=== PATIENT | female | born 1945 | race Caucasian/White ===

== ENCOUNTER → 2016-08-02 | Outpatient (CLI) | payer MEDICARE, OTHER ==
[~2016-08-02] MED LIST: ALEN70TA5 PO; AMLO5TAB2 PO; ASPI-496 PO; CHOL100015 PO; EZET10TA3 PO; FLUT16SP NS; LOPE2CAP94 PO; METO-99 PO; MV,C400T3 PO; PROBIOSLIM PO; TOLT1TAB4 PO; TRAM50TA2 PO
== END | disposition home or self-care (01) ==
LOC: STAR 12:00
PROVIDERS: ATTEND Surgery
DX: Z01.818 Encounter for other preprocedural examination (principal); R92.0 Mammographic microcalcification found on diagnostic imaging of breast
CPT/HCPCS: 93005

== ENCOUNTER 2016-08-08 08:24 | Day surgery (SDC) | payer MEDICARE, OTHER ==
[~2016-08-08] VITALS: Ht 170.2 cm; Wt 111.0 kg
[2016-08-08] MEDS ORDERED: LACTATED RINGERS 1,000 ML IV SCH (10:04)
[2016-08-08] MEDS ORDERED: LIDOCAINE 1%, 2ML ONE (10:07)
[2016-08-08] MEDS ORDERED: LIDOCAINE 1%, 20ML ONE (10:09)
[2016-08-08] MEDS ORDERED: SODIUM BICARBONATE 4.2%, 5ML ONE (10:09)
[2016-08-08 10:10] VITALS: BP 116/66
[2016-08-08] MEDS ORDERED: ONDANSETRON 2MG/ML, 2ML ONE ×2 (10:20→13:18)
[2016-08-08] MEDS ORDERED: CEFAZOLIN 1,000 MG ONE (10:20)
[2016-08-08] MEDS ORDERED: GLYCOPYRROLATE 0.2MG/1ML ONE (10:20)
[2016-08-08] MEDS ORDERED: PROPOFOL 10 MG/ML, 20ML ONE (10:20)
[2016-08-08] MEDS ORDERED: DEXAMETHASONE 4 MG/ML, 5ML ONE (10:20)
[2016-08-08] MEDS ORDERED: BUPIVACAINE/PF 0.5% ONE (11:00)
[2016-08-08] MEDS ORDERED: BUPIVACAINE/PF-EPI 0.5% 1:200K ONE (11:01)
[2016-08-08] MEDS ORDERED: FENTANYL PF 100 MCG/2ML ONE (12:23)
[2016-08-08] MEDS ORDERED: OXYcodone 5 MG/5 ML ORAL.SOL UDC PO PRN (12:30)
[2016-08-08] MEDS ORDERED: hydrALAzine 20 MG/ML, 1ML IV PRN (12:30)
[2016-08-08] MEDS ORDERED: ONDANSETRON 2MG/ML, 2ML IVPush PRN (12:30)
[2016-08-08] MEDS ORDERED: HYDROmorphone 1 MG/ML, 1ML IV PRN (12:30)
[2016-08-08] MEDS ORDERED: ACETAMINOPHEN 325 MG TABLET PO PRN (12:30)
[2016-08-08] MEDS ORDERED: FENTANYL PF 100 MCG/2ML IV PRN (12:30)
[2016-08-08] MEDS ORDERED: LABETALOL 5MG/ML, 20ML IV PRN (12:30)
[2016-08-08] MEDS ORDERED: OXYcodone 5 MG/5 ML ORAL.SOL UDC ONE (13:19)
[2016-08-08] MEDS ORDERED: HYDROmorphone 1 MG/ML, 1ML ONE (13:46)
== END 2016-08-08 17:55 | disposition home or self-care (01) ==
LOC: CFH 08:24 → OUT 17:55
PROVIDERS: ATTEND Surgery
DX: C50.911 Malignant neoplasm of unspecified site of right female breast (principal); N60.21 Fibroadenosis of right breast; G47.33 Obstructive sleep apnea (adult) (pediatric); I10 Essential (primary) hypertension; E78.5 Hyperlipidemia, unspecified; Z90.49 Acquired absence of other specified parts of digestive tract; Z87.442 Personal history of urinary calculi; Z98.890 Other specified postprocedural states; M19.90 Unspecified osteoarthritis, unspecified site; Z82.49 Family history of ischemic heart disease and other diseases of the circulatory system
CPT/HCPCS: 19125; 19281; 88307; J0690; J1100; J1170; J2405; J2704; J3010; J3490; J7120

== ENCOUNTER 2016-09-05 12:52 | Observation (INO) | payer MEDICARE, OTHER ==
[~2016-09-05] VITALS: Ht 170.2 cm; Wt 112.0 kg
[~2016-09-05 12:52] MED LIST changes: +CEFAZOLIN 1,000 MG ONE; +EPHEDRINE 50 MG/ML, 1ML ONE; +GLYCOPYRROLATE 0.2MG/1ML ONE; +ONDANSETRON 2MG/ML, 2ML ONE; +PROPOFOL 10 MG/ML, 20ML ONE; +ROCURONIUM 10 MG/ML ONE; +SUCCINYLCHOLINE 20 MG/ML, 10ML ONE
[2016-09-05] MEDS ORDERED: LACTATED RINGERS 1,000 ML IV SCH ×2 (13:15→21:30)
[2016-09-05] MEDS ORDERED: LIDOCAINE 1%, 20ML ONE (14:41)
[2016-09-05] MEDS ORDERED: MIDAZOLAM 1 MG/ML, 2ML ONE (17:49)
[2016-09-05] MEDS ORDERED: FENTANYL PF 250 MCG/5ML ONE (17:49)
[2016-09-05] MEDS ORDERED: BUPIVACAINE/PF-EPI 0.5% 1:200K ONE (17:57)
[2016-09-05] MEDS ORDERED: LABETALOL 5MG/ML, 20ML IV PRN ×2 (18:30)
[2016-09-05] MEDS ORDERED: hydrALAzine 20 MG/ML, 1ML IV PRN ×2 (18:30)
[2016-09-05] MEDS ORDERED: OXYcodone 5 MG/5 ML ORAL.SOL UDC PO PRN ×2 (18:30)
[2016-09-05] MEDS ORDERED: HYDROmorphone 1 MG/ML, 1ML IV PRN (18:30)
[2016-09-05] MEDS ORDERED: ONDANSETRON 2MG/ML, 2ML IVPush PRN ×2 (18:30)
[2016-09-05] MEDS ORDERED: ACETAMINOPHEN 325 MG TABLET PO PRN (18:30)
[2016-09-05] MEDS ORDERED: METOCLOPRAMIDE 5 MG/ML, 2ML IV PRN (18:30)
[2016-09-05] MEDS ORDERED: FENTANYL PF 100 MCG/2ML IV PRN ×2 (18:30)
[2016-09-05] MEDS: HYDROmorphone 1 MG/ML, 1ML IV PRN ×3 (19:20→19:58)
[2016-09-05] MEDS ORDERED: HYDROmorphone 2 MG/ML, 1ML ONE (19:24)
[2016-09-05] MEDS ORDERED: ACETAMINOPHEN 650 MG/20.3 ML UDC ONE (19:24)
[2016-09-05] MEDS ORDERED: ONDANSETRON 2MG/ML, 2ML ONE (19:25)
[2016-09-05] MEDS ORDERED: OXYcodone 5 MG/5 ML ORAL.SOL UDC ONE (19:25)
[2016-09-05] MEDS ORDERED: PROMETHAZINE 25 MG/ML, 1ML ONE (19:25)
[2016-09-05] MEDS ORDERED: METOCLOPRAMIDE 5 MG/ML, 2ML ONE (19:59)
[2016-09-05] MEDS ORDERED: PROMETHAZINE 25 MG/ML, 1ML IVPush ONE (20:30)
[2016-09-05 21:02] VITALS: BP 147/76
[2016-09-05] MEDS ORDERED: MORPHINE SULFATE 4 MG/ML, 1ML IVPush PRN (21:30)
[2016-09-05] MEDS ORDERED: OXYcodone/APAP 5/325MG TABLET PO PRN (23:30)
[2016-09-06 00:39] VITALS: BP 131/81
[2016-09-06] MEDS ORDERED: HYDR-3240 PO (02:10)
== END 2016-09-06 06:30 | disposition home or self-care (01) ==
LOC: OUT 12:52 → EDSTATUS 17:45 → 4NOR 21:05 → OUT 22:38 → 4NOR 22:38 → INTOOBSV 22:38
PROVIDERS: ADMIT Surgery; ATTEND Surgery
DX: C50.911 Malignant neoplasm of unspecified site of right female breast (principal); N63 Unspecified lump in breast; I10 Essential (primary) hypertension; E78.5 Hyperlipidemia, unspecified; M19.90 Unspecified osteoarthritis, unspecified site
CPT/HCPCS: 19303; 38792; 88305; 88307; 88333; A9541; C1729; C9898; G0378; J0330; J0690; J1170; J2250; J2405; J2550; J2704; J2765; J3010; J3490

== ENCOUNTER 2019-01-07 09:57 | Outpatient (CLI) | payer MEDICARE, OTHER ==
[~2019-01-07 09:57] MED LIST changes: -ALEN70TA5 PO; +ALEN70TA6 PO; +AMLO-150 PO; -AMLO5TAB2 PO; -CEFAZOLIN 1,000 MG ONE; -EPHEDRINE 50 MG/ML, 1ML ONE; -EZET10TA3 PO; +EZET10TA70 PO; -FLUT16SP NS; +FLUT16SP24 NS; -GLYCOPYRROLATE 0.2MG/1ML ONE; +HYDR-3240 PO; +LOPE-114 PO; -LOPE2CAP94 PO; -ONDANSETRON 2MG/ML, 2ML ONE; -PROPOFOL 10 MG/ML, 20ML ONE; -ROCURONIUM 10 MG/ML ONE; -SUCCINYLCHOLINE 20 MG/ML, 10ML ONE; +TOLT1TAB13 PO; -TOLT1TAB4 PO
== END 2019-01-07 23:59 | disposition home or self-care (01) ==
LOC: CFH 09:57
PROVIDERS: ATTEND Registered Nurse
DX: R05 Cough (principal); M47.814 Spondylosis without myelopathy or radiculopathy, thoracic region; Z68.41 Body mass index [BMI] 40.0-44.9, adult
CPT/HCPCS: 71046

== ENCOUNTER → 2019-08-08 | Outpatient (CLI) | payer MEDICARE, OTHER ==
[~2019-08-08] MED LIST changes: +ALBU18HF INH; +ANAS1TAB49 PO; +CHOL10003 PO; +FLUT9.9S NAS; +FURO20TA3 PO; +LACT1CAP35 PO; +METO-95 PO; +NIFE-7 PO; +POTA10TA6 PO; +VIT1CAPS42 PO
== END | disposition home or self-care (01) ==
LOC: STAR 12:41
PROVIDERS: ATTEND Surgery
DX: Z01.818 Encounter for other preprocedural examination (principal)
CPT/HCPCS: 93005

== ENCOUNTER 2019-08-19 07:18 | Day surgery (SDC) | payer MEDICARE, OTHER ==
[2019-08-08 13:05] VITALS: BP 163/95
[~2019-08-19] VITALS: Ht 172.7 cm; Wt 126.4 kg
[2019-08-19] MEDS ORDERED: LACTATED RINGERS 1,000 ML IV SCH (07:27)
[2019-08-19] MEDS ORDERED: CHLORHEXIDINE 15 ML UDC MM ONE (07:30)
[2019-08-19 07:37] VITALS: BP 163/95
[2019-08-19] MEDS ORDERED: MIDAZOLAM 1 MG/ML, 2ML ONE (08:32)
[2019-08-19] MEDS ORDERED: FENTANYL PF 250 MCG/5ML ONE (08:32)
[2019-08-19] MEDS ORDERED: ONDANSETRON 2MG/ML, 2ML ONE (08:37)
[2019-08-19] MEDS ORDERED: DEXAMETHASONE 4 MG/ML, 1ML ONE (08:37)
[2019-08-19] MEDS ORDERED: ROCURONIUM 10MG/ML,5ML ONE (08:37)
[2019-08-19] MEDS ORDERED: PROPOFOL 10 MG/ML, 20ML ONE (08:37)
[2019-08-19] MEDS ORDERED: SUCCINYLCHOLINE 20 MG/ML, 10ML ONE (08:37)
[2019-08-19] MEDS ORDERED: CEFAZOLIN 1,000 MG ONE (08:37)
[2019-08-19] MEDS ORDERED: ONDANSETRON 2MG/ML, 2ML IVPush PRN (10:00)
[2019-08-19] MEDS ORDERED: MIDAZOLAM 1 MG/ML, 2ML IV PRN (10:00)
[2019-08-19] MEDS ORDERED: PROMETHAZINE 25 MG/ML, 1ML IVPush PRN (10:00)
[2019-08-19] MEDS ORDERED: DIPHENHYDRAMINE 50 MG/ML, 1ML IVPush PRN (10:00)
[2019-08-19] MEDS ORDERED: PROMETHAZINE 12.5 MG SUPP PR PRN (10:00)
[2019-08-19] MEDS ORDERED: LABETALOL 5MG/ML, 20ML IV PRN (10:00)
[2019-08-19] MEDS ORDERED: EPHEDRINE 50 MG/ML, 1ML IVPush PRN (10:00)
[2019-08-19] MEDS ORDERED: DIAZEPAM 5 MG/ML, 2ML IVPush PRN (10:00)
[2019-08-19] MEDS ORDERED: HYDROmorphone 1 MG/ML, 1ML INJ IVPush PRN (10:00)
[2019-08-19] MEDS ORDERED: OXYcodone 5 MG/5 ML ORAL.SOL UDC PO PRN (10:00)
[2019-08-19] MEDS ORDERED: hydrALAzine 20 MG/ML, 1ML IV PRN (10:00)
[2019-08-19] MEDS ORDERED: ACETAMINOPHEN 325 MG TABLET PO PRN (10:00)
[2019-08-19] MEDS ORDERED: MEPERIDINE/PF 25MG/0.5ML IVPush PRN (10:00)
[2019-08-19] MEDS ORDERED: ALBUTEROL SULFATE 2.5 MG/3 ML NPPB PRN (10:00)
[2019-08-19] MEDS ORDERED: FENTANYL PF 100 MCG/2ML ONE ×2 (10:25→10:54)
[2019-08-19] MEDS ORDERED: ACETAMINOPHEN 650 MG/20.3 ML UDC ONE (10:25)
[2019-08-19] MEDS ORDERED: OXYcodone 5 MG/5 ML ORAL.SOL UDC ONE (10:25)
[2019-08-19] MEDS: FENTANYL PF 100 MCG/2ML IV PRN ×4 (10:35→11:21)
[2019-08-19 11:09] LABS: 10MIN %DROP IOPTH 56 %; 5MIN %DROP IOPTH 44 %; IOPTH BASELINE 305 pg/mL; SAMPLE 5 %DROP IOPTH 64 %
== END 2019-08-19 14:50 | disposition home or self-care (01) ==
LOC: OUT 07:18
PROVIDERS: ATTEND Surgery
DX: E21.0 Primary hyperparathyroidism (principal); Z11.59 Encounter for screening for other viral diseases; K21.9 Gastro-esophageal reflux disease without esophagitis; J44.9 Chronic obstructive pulmonary disease, unspecified; I10 Essential (primary) hypertension; E78.5 Hyperlipidemia, unspecified; E55.9 Vitamin D deficiency, unspecified; G47.33 Obstructive sleep apnea (adult) (pediatric); M85.80 Other specified disorders of bone density and structure, unspecified site; E66.01 Morbid (severe) obesity due to excess calories; Z68.42 Body mass index [BMI] 45.0-49.9, adult; Z79.82 Long term (current) use of aspirin; Z79.899 Other long term (current) drug therapy; Z87.442 Personal history of urinary calculi; Z90.49 Acquired absence of other specified parts of digestive tract; Z98.84 Bariatric surgery status; Z98.890 Other specified postprocedural states; Z82.3 Family history of stroke; Z82.49 Family history of ischemic heart disease and other diseases of the circulatory system; Z80.6 Family history of leukemia; Z80.8 Family history of malignant neoplasm of other organs or systems
CPT/HCPCS: 36415; 60500; 83970; 87635; 88305; 88331; C1760; J0330; J0690; J1100; J2250; J2405; J2704; J3010; J7120